=== PATIENT | male | born 1960 | race Caucasian/White ===

== ENCOUNTER 2016-07-17 00:17 | Emergency (ER) | payer BC ==
[~2016-07-17 00:17] MED LIST: ASAB PO; FISH-EPA1000 MG PO; MULTIPLE VIT PO; PAX20 PO; VITAMIN B PO; VITAMIN D31000 UNIT PO
== END 2016-07-17 02:18 | disposition left against medical advice (07) ==
LOC: ER 00:17
DX: R00.2 Palpitations (principal); Z53.21 Procedure and treatment not carried out due to patient leaving prior to being seen by health care provider
CPT/HCPCS: 80048; 83735; 84484; 85025; 85610; 85730; 93005